=== PATIENT | female | born 1995 | race African-American/Black ===

== ENCOUNTER 2022-04-06 16:19 | Emergency (ER) | payer MEDICAID, OTHER ==
[2022-04-06 17:14] LABS: BASOPHILS % (AUTO) 0.6 %; EOSINOPHILS # (AUTO) 0.1 10^3/uL (0.0-0.7); EOSINOPHILS % (AUTO) 1.5 %; HCT - HEMATOCRIT 32.5 % (37.0-47.0); HGB - HEMOGLOBIN 9.8 g/dL (12.0-16.0); LYMPHOCYTES # (AUTO) 1.9 10^3/uL (1.5-3.5); LYMPHOCYTES % (AUTO) 39.1 %; MEAN CORPUSCULAR HEMOGLOBIN 23.9 pg (27.0-31.0); MEAN CORPUSCULAR HGB CONC 30.2 g/dL (32.0-36.0); MEAN CORPUSCULAR VOLUME 79.3 fL (81.0-99.0); MEAN PLATELET VOLUME 10.5 fL (7.9-10.8); MONOCYTES # (AUTO) 0.5 10^3/uL (0.0-1.0); NEUTROPHILS # (AUTO) 2.3 10^3/uL (1.5-6.6); NEUTROPHILS % (AUTO) 47.6 %; PLT - PLATELET COUNT 314 10^3/uL (130-450); RED CELL DISTRIBUTION WIDTH 15.9 % (12.0-15.0); WHITE BLOOD COUNT 4.8 x10^3/uL (4.8-10.8)
--- NOTE | 2022-04-06 17:19 | XRAY Report ---
PROCEDURE: Chest 1 View X-Ray INDICATIONS: SOA TECHNIQUE: One view of the chest was acquired. COMPARISON: None. FINDINGS: Surgical changes and devices: None. Lungs and pleura: No pleural effusions or pneumothorax. Lungs are clear. Mediastinum: Mediastinal contours appear normal. Heart size is normal. Bones and chest wall: No suspicious bony lesions. Overlying soft tissues appear unremarkable. IMPRESSION: No acute cardiopulmonary disease. Reviewed by: Dwight Vaca MD on 04/06/2022 5:18 PM PDT Approved by: Dwight Vaca MD on 04/06/2022 5:18 PM PDT Station ID: [id number]
[2022-04-06 17:25] LABS: ALBUMIN 3.9 g/dL (3.2-5.5); BILIRUBIN,TOTAL 0.5 mg/dL (0.2-1.0); CALCIUM 8.8 mg/dL (8.5-10.3); CREATININE 0.7 mg/dL (0.4-1.0); POTASSIUM 3.8 mmol/L (3.5-5.0)
--- NOTE | 2022-04-06 18:13 | ED Physician Documentation ---
PD HPI DYSPNEA - Stated complaint Stated Complaint: TROUBLE BREATHING - Chief complaint Chief Complaint: Resp - History obtained from History obtained from: Patient - Additional information Additional information: Patient is a 26-year-old female with reported history of iron deficiency anemia presenting for evaluation of shortness of air has been intermittent for the last 3 months. Patient reports it occurs with exertion but also when she is laying down to sleep. She reports at times having heart palpitations and feels that her heart is racing as well as right-sided chest pressure. She reports taking deep breaths helps her symptoms. The last time she had chest pressure was last night while she was laying down. She reports a history of iron deficiency anemia but has not been using iron pills for several months that she did not feel like it was helping her. She denies headaches, migration of chest pain, cough, abdominal pain, vomiting, vaginal bleeding or discharge. Review of Systems Constitutional: denies: Fever Nose: denies: Congestion Cardiac: reports: Chest pain / pressure, Palpitations Respiratory: reports: Dyspnea GI: denies: Abdominal Pain, Vomiting : denies: Dysuria, Vaginal bleeding Musculoskeletal: denies: Back pain Neurologic: denies: Headache PD PAST MEDICAL HISTORY - Present Medications Home Medications: Ambulatory Orders Medication Instructions Recorded Confirmed Ferrous Sulfate 325 mg PO DAILY #30 tab 04/06/22 - Allergies Allergies/Adverse Reactions: Allergies Allergy/AdvReac Type Severity Reaction Status Date / Time acetaminophen [From Vicodin] Allergy Emesis Verified 04/06/22 16:31 hydrocodone [From Vicodin] Allergy Emesis Verified 04/06/22 16:31 PD ED PE NORMAL - General General: Alert and oriented X 3, No acute distress, Well developed/nourished - HEENT HEENT: Atraumatic, Moist mucous membranes - Neck Neck: Supple, no meningeal sign - Cardiac Cardiac: RRR, No murmur, Strong equal pulses - Respiratory Respiratory: No respiratory distress, Clear bilaterally - Abdomen Abdomen: Normal bowel sounds, Soft, Non tender, Non distended - Derm Derm: Warm and dry - Extremities Extremities: No edema, No calf tenderness / cord - Neuro Neuro: Normal speech Results - Vitals Vitals: Vital Signs - 24 hr 04/06/22 04/06/22 16:25 18:54 Temperature 36.2 C L Heart Rate 86 79 Respiratory 18 16 Rate Blood Pressure 162/93 H 142/91 H O2 Saturation 100 100 Oxygen O2 Source Room air - EKG (time done) 1634 Rate: Rate (enter#) (88) Rhythm: NSR [place]: Normal Intervals: No: Prolonged QT Ischemia: No: ST elevation c/w ischemia - Labs Labs: Laboratory Tests 04/06/22 04/06/22 04/06/22 17:10 17:10 17:15 WBC 4.8 RBC 4.10 L Hgb 9.8 L Hct 32.5 L MCV 79.3 L MCH 23.9 L MCHC 30.2 L RDW 15.9 H Plt Count 314 MPV 10.5 Neut # (Auto) 2.3 Lymph # (Auto) 1.9 Angelina # (Auto) 0.5 Eos # (Auto) 0.1 Baso # (Auto) 0.0 Absolute Nucleated RBC 0.00 Nucleated RBC % 0.0 Sodium 136 Potassium 3.8 Chloride 106 Carbon Dioxide 25 Anion Gap 5.0 L BUN 10 Creatinine 0.7 Estimated GFR (MDRD) 121 Glucose 97 Calcium 8.8 Total Bilirubin 0.5 AST 22 ALT 16 Alkaline Phosphatase 51 Troponin I High Sens < 2.3 L Total Protein 8.0 Albumin 3.9 Globulin 4.1 Albumin/Globulin Ratio 1.0 TSH 04/06/22 17:15 WBC RBC Hgb Hct MCV MCH MCHC RDW Plt Count MPV Neut # (Auto) Lymph # (Auto) Angelina # (Auto) Eos # (Auto) Baso # (Auto) Absolute Nucleated RBC Nucleated RBC % Sodium Potassium Chloride Carbon Dioxide Anion Gap BUN Creatinine Estimated GFR (MDRD) Glucose Calcium Total Bilirubin AST ALT Alkaline Phosphatase Troponin I High Sens Total Protein Albumin Globulin Albumin/Globulin Ratio TSH 2.08 PD MEDICAL DECISION MAKING - ED course Complexity details: reviewed results, re-evaluated patient, d/w patient ED course: ACPatient presenting for shortness of air that is been intermittent for 3 months. Vital signs here are stable. PERC negative. She is low risk for ACS and her symptoms sound atypical for this. Her EKG is a sinus rhythm without signs of arrhythmia. No arrhythmias noted on [employer]. Labs reviewed with findings of anemia. No previous labs available. Patient does not require an emergent blood transfusion. She was counseled that she should resume her iron pills and I have sent a prescription for her. She was also counseled on need for follow-up with her primary care doctor to ensure that the iron is helping her or to discuss other treatment options. Departure - Departure Disposition: 01 Home, Self Care Clinical Impression: Shortness of breath, Iron deficiency anemia Condition: Stable Instructions: ED Anemia Iron Deficiency Follow-Up: Shyam Scanlon MD [Physician No Access] - Prescriptions: Ferrous Sulfate 325 mg PO DAILY #30 tab Comments: You were evaluated for shortness of breath and palpitations. Your labs were overall reassuring other than you are anemic which is likely related to iron deficiency anemia. Please make sure to take the iron tablets every day. I sent a prescription to [facility] in [place]. I have also included the name of her primary care physician to establish care with as you need follow-up. You have any new or worsening symptoms please return to the ER. Discharge Date/Time: 04/06/22 18:54
[2022-04-06 18:55] VITALS: BP 142/91
== END 2022-04-06 18:54 | disposition home or self-care (01) ==
LOC: ED 16:19
DX: R06.09 Other forms of dyspnea (principal); D50.9 Iron deficiency anemia, unspecified
CPT/HCPCS: 36415; 80053; 84443; 84484; 85025; 93005; 99284